=== PATIENT | female | born 1985 | race Caucasian/White ===

== ENCOUNTER 2017-07-07 12:14 | Emergency (ER) | payer OTHER ==
[~2017-07-07] VITALS: Ht 160 cm; Wt 81.7 kg
[2017-07-07 13:02] LABS: ABSOLUTE NEUTROPHILS 8.7 thou/uL (1.4-8.2); BASOPHILS 0.2 % (0.0-2.0); EOSINOPHILS 0.3 % (0.0-3.0); HEMOGLOBIN 16.6 gm/dL (12.0-15.0); LYMPHOCYTES 13.8 % (24.0-44.0); MCH 30.5 pg (26.0-34.0); MCHC 33.9 g/dL (28.0-37.0); MCV 90.1 fL (80.0-100.0); MONOCYTES 4.8 % (1.0-8.0); PLATELET COUNT 258 thou/uL (150-400); POLYS 80.9 % (36.0-66.0); RBC 5.43 mil/uL (4.20-5.00); RDW 12.7 % (10.5-14.5); WBC 10.7 thou/uL (4.0-11.0)
[2017-07-07 13:41] LABS: CALCIUM 9.5 mg/dL (8.5-10.1); CREATININE 0.9 mg/dL (0.6-1.0); POTASSIUM 3.8 mmol/L (3.5-5.1)
[2017-07-07 13:47] LABS: ALBUMIN 3.9 g/dL (3.4-5.0); DIRECT BILIRUBIN 0.1 mg/dL (<0.1-0.3); TOTAL BILIRUBIN 0.5 mg/dL (<0.1-1.0); TOTAL PROTEIN 7.4 g/dL (6.4-8.2)
[2017-07-07 14:47] LABS: URINE BILIRUBIN NEGATIVE (Negative); URINE BLOOD NEGATIVE (Negative); URINE CLARITY CLEAR; URINE COLOR YELLOW; URINE GLUCOSE-RANDOM* NEGATIVE (Negative); URINE KETONES 1+ (Negative); URINE LEUKOCYTES-REFLEX NEGATIVE (Negative); URINE NITRITE-REFLEX NEGATIVE (Negative); URINE PROTEIN (DIPSTICK) TRACE (Negative); URINE SPECIFIC GRAVITY 1.015 (1.005-1.035); URINE UROBILINOGEN 0.2 E.U./dl (0.2-1.0)
[2017-07-07] MEDS ORDERED: NORCO 5-325 TA1 EACH PO (15:06)
[2017-07-07] MEDS ORDERED: ZOFRAN ODT4 MG PO (15:06)
== END 2017-07-07 15:15 | disposition home or self-care (01) ==
LOC: ER 12:14
PROVIDERS: Emergency Medicine
DX: R10.9 Unspecified abdominal pain (principal); R11.2 Nausea with vomiting, unspecified

== ENCOUNTER 2017-10-23 16:08 | Emergency (ER) | payer OTHER ==
[~2017-10-23] VITALS: Ht 162.6 cm; Wt 77.1 kg
[~2017-10-23 16:08] MED LIST: NORCO 5-325 TA1 EACH PO; ZOFRAN ODT4 MG PO
[2017-10-23 16:36] LABS: HEMATOCRIT 52.2 % (37.0-47.0); HEMOGLOBIN 18.8 gm/dL (12.0-15.0); MCH 30.6 pg (26.0-34.0); MCHC 35.9 g/dL (28.0-37.0); MCV 85.2 fL (80.0-100.0); PLATELET COUNT 380 thou/uL (150-400); RBC 6.13 mil/uL (4.20-5.00); RDW 16.6 % (10.5-14.5); WBC 14.8 thou/uL (4.0-11.0)
[2017-10-23 16:49] LABS: ABSOLUTE NEUTROPHILS 12.9 thou/uL (1.4-8.2); ANISOCYTOSIS 1+; MICROCYTES 2+; PLATELET ESTIMATE NORMAL
[2017-10-23 17:08] LABS: URINE BILIRUBIN NEGATIVE (Negative); URINE BLOOD NEGATIVE (Negative); URINE CLARITY CLEAR; URINE COLOR YELLOW; URINE GLUCOSE-RANDOM* NEGATIVE (Negative); URINE KETONES TRACE (Negative); URINE LEUKOCYTES-REFLEX NEGATIVE (Negative); URINE NITRITE-REFLEX NEGATIVE (Negative); URINE PROTEIN (DIPSTICK) 1+ (Negative); URINE SPECIFIC GRAVITY 1.015 (1.005-1.035); URINE UROBILINOGEN 0.2 E.U./dl (0.2-1.0)
[2017-10-23 17:16] LABS: BACTERIA-REFLEX 1-9 Few /HPF (None Seen); CASTS None Seen /LPF (None Seen); CRYSTALS None Seen /LPF (None Seen); MUCUS >6 Heavy strn/LPF (None Seen); SQUAMOUS >10 Many /LPF (0-3); URINE RBC 0-2 Rare /HPF (0-2); URINE WBC-REFLEX 0-5 Rare /HPF (0-5)
[2017-10-23 17:31] LABS: POTASSIUM 4.5 mmol/L (3.5-5.1)
[2017-10-23 17:39] LABS: ALBUMIN 4.5 g/dL (3.4-5.0); TOTAL PROTEIN 8.6 g/dL (6.4-8.2)
[2017-10-23] MEDS ORDERED: ZOFRAN ODT4 MG PO (18:39)
[2017-10-23 19:06] VITALS: BP 116/68
== END 2017-10-23 19:07 | disposition home or self-care (01) ==
LOC: ER 16:08
PROVIDERS: Physician Assistant
DX: R10.13 Epigastric pain (principal); R11.2 Nausea with vomiting, unspecified; R19.7 Diarrhea, unspecified; F12.10 Cannabis abuse, uncomplicated; F17.210 Nicotine dependence, cigarettes, uncomplicated; Z88.0 Allergy status to penicillin

== ENCOUNTER 2017-12-29 15:22 | Emergency (ER) | payer OTHER ==
[~2017-12-29] VITALS: Ht 160 cm; Wt 79.4 kg
[2017-12-29 15:57] LABS: URINE BLOOD NEGATIVE (Negative); URINE CLARITY CLEAR; URINE COLOR YELLOW; URINE GLUCOSE-RANDOM* NEGATIVE (Negative); URINE KETONES TRACE (Negative); URINE LEUKOCYTES-REFLEX NEGATIVE (Negative); URINE NITRITE-REFLEX NEGATIVE (Negative); URINE PROTEIN (DIPSTICK) TRACE (Negative); URINE SPECIFIC GRAVITY >= 1.030 (1.005-1.035); URINE UROBILINOGEN 0.2 E.U./dl (0.2-1.0)
[2017-12-29 15:59] LABS: ICTOTEST (BILI CONFIRMATORY) Negative (Negative); URINE BILIRUBIN NEGATIVE (Negative)
[2017-12-29 16:16] LABS: ABSOLUTE NEUTROPHILS 12.4 thou/uL (1.4-8.2); BASOPHILS 0.4 % (0.0-2.0); EOSINOPHILS 0.1 % (0.0-3.0); HEMATOCRIT 44.4 % (37.0-47.0); HEMOGLOBIN 15.5 gm/dL (12.0-15.0); LYMPHOCYTES 9.5 % (24.0-44.0); MCH 31.2 pg (26.0-34.0); MCHC 34.8 g/dL (28.0-37.0); MCV 89.5 fL (80.0-100.0); MONOCYTES 7.7 % (1.0-8.0); PLATELET COUNT 287 thou/uL (150-400); POLYS 82.3 % (36.0-66.0); RBC 4.96 mil/uL (4.20-5.00); RDW 13.5 % (10.5-14.5)
[2017-12-29 16:26] LABS: CALCIUM 9.2 mg/dL (8.5-10.1); CREATININE 0.9 mg/dL (0.6-1.0); POTASSIUM 3.7 mmol/L (3.5-5.1)
[2017-12-29 16:32] LABS: ALBUMIN 3.9 g/dL (3.4-5.0); TOTAL BILIRUBIN 0.9 mg/dL (<0.1-1.0); TOTAL PROTEIN 7.8 g/dL (6.4-8.2)
[2017-12-29] MEDS ORDERED: NORCO 5-325 TA1 EACH PO (17:24)
[2017-12-29] MEDS ORDERED: ONDANSETRON HCL4 M2 PO (17:24)
[2017-12-29] MEDS ORDERED: MOBIC7.5 MG PO (17:24)
[2017-12-29] MEDS ORDERED: PROTONIX40 M1 PO (17:32)
[2017-12-29] MEDS ORDERED: REGLAN 10 MG TA10 MG PO (17:32)
[2017-12-29 18:19] VITALS: BP 128/86
[2017-12-30] MEDS ORDERED: XANAX1 MG PO (02:39)
[2017-12-30] MEDS ORDERED: PHENERGAN 25 MG25 M1 PO (03:13)
[2017-12-30] MEDS ORDERED: ZOFRAN ODT4 MG PO (03:13)
== END 2017-12-29 18:23 | disposition home or self-care (01) ==
LOC: ER 15:22
PROVIDERS: Physician Assistant
DX: M54.9 Dorsalgia, unspecified (principal); R11.2 Nausea with vomiting, unspecified; F17.210 Nicotine dependence, cigarettes, uncomplicated; Z88.0 Allergy status to penicillin; Z90.49 Acquired absence of other specified parts of digestive tract

== ENCOUNTER 2017-12-30 01:47 | Emergency (ER) | payer OTHER ==
[~2017-12-30] VITALS: Ht 162.6 cm; Wt 81.7 kg
[~2017-12-30 01:47] MED LIST changes: +MOBIC7.5 MG PO; +ONDANSETRON HCL4 M2 PO; +PROTONIX40 M1 PO; +REGLAN 10 MG TA10 MG PO
[2017-12-30] MEDS ORDERED: XANAX1 MG PO (02:39)
[2017-12-30 02:42] LABS: ABSOLUTE NEUTROPHILS 10.1 thou/uL (1.4-8.2); BASOPHILS 0.4 % (0.0-2.0); EOSINOPHILS 0.4 % (0.0-3.0); HEMATOCRIT 47.6 % (37.0-47.0); HEMOGLOBIN 16.8 gm/dL (12.0-15.0); LYMPHOCYTES 15.9 % (24.0-44.0); MCH 31.9 pg (26.0-34.0); MCHC 35.3 g/dL (28.0-37.0); MCV 90.6 fL (80.0-100.0); MONOCYTES 9.4 % (1.0-8.0); PLATELET COUNT 272 thou/uL (150-400); POLYS 73.9 % (36.0-66.0); RBC 5.25 mil/uL (4.20-5.00); RDW 13.8 % (10.5-14.5); WBC 13.7 thou/uL (4.0-11.0)
[2017-12-30 02:54] LABS: CALCIUM 9.5 mg/dL (8.5-10.1); CREATININE 0.9 mg/dL (0.6-1.0)
[2017-12-30 02:58] LABS: ALBUMIN 4.1 g/dL (3.4-5.0); DIRECT BILIRUBIN 0.2 mg/dL (<0.1-0.3); TOTAL BILIRUBIN 1.2 mg/dL (<0.1-1.0); TOTAL PROTEIN 8.3 g/dL (6.4-8.2)
[2017-12-30] MEDS ORDERED: PHENERGAN 25 MG25 M1 PO (03:13)
[2017-12-30] MEDS ORDERED: ZOFRAN ODT4 MG PO (03:13)
[2017-12-30 04:39] VITALS: BP 134/85
== END 2017-12-30 04:41 | disposition home or self-care (01) ==
LOC: ER 01:47
PROVIDERS: Emergency Medicine
DX: F12.188 Cannabis abuse with other cannabis-induced disorder (principal); F17.210 Nicotine dependence, cigarettes, uncomplicated; Z88.0 Allergy status to penicillin; Z90.49 Acquired absence of other specified parts of digestive tract

== ENCOUNTER 2018-04-13 17:36 | Emergency (ER) | payer OTHER ==
[~2018-04-13] VITALS: Ht 162.6 cm; Wt 81.7 kg
[~2018-04-13 17:36] MED LIST changes: +PHENERGAN 25 MG25 M1 PO; +XANAX1 MG PO
[2018-04-13 18:01] LABS: ABSOLUTE NEUTROPHILS 10.1 thou/uL (1.4-8.2); BASOPHILS 0.3 % (0.0-2.0); EOSINOPHILS 0.1 % (0.0-3.0); HEMATOCRIT 49.9 % (37.0-47.0); HEMOGLOBIN 17.5 gm/dL (12.0-15.0); MCH 31.8 pg (26.0-34.0); MCHC 35.1 g/dL (28.0-37.0); MCV 90.5 fL (80.0-100.0); MONOCYTES 2.6 % (1.0-8.0); PLATELET COUNT 312 thou/uL (150-400); RBC 5.51 mil/uL (4.20-5.00); RDW 12.8 % (10.5-14.5); WBC 11.4 thou/uL (4.0-11.0)
[2018-04-13 18:10] LABS: CALCIUM 10.1 mg/dL (8.5-10.1); CREATININE 0.8 mg/dL (0.6-1.0); POTASSIUM 4.1 mmol/L (3.5-5.1)
[2018-04-13 18:15] LABS: ALBUMIN 4.3 g/dL (3.4-5.0); DIRECT BILIRUBIN 0.1 mg/dL (<0.1-0.3); TOTAL BILIRUBIN 0.8 mg/dL (<0.1-1.0); TOTAL PROTEIN 8.3 g/dL (6.4-8.2)
[2018-04-13 18:31] LABS: URINE BILIRUBIN NEGATIVE (Negative); URINE BLOOD NEGATIVE (Negative); URINE CLARITY CLEAR; URINE COLOR YELLOW; URINE GLUCOSE-RANDOM* NEGATIVE (Negative); URINE KETONES NEGATIVE (Negative); URINE LEUKOCYTES NEGATIVE (Negative); URINE NITRITE NEGATIVE (Negative); URINE PROTEIN (DIPSTICK) TRACE (Negative); URINE SPECIFIC GRAVITY 1.015 (1.005-1.035); URINE UROBILINOGEN 0.2 E.U./dl (0.2-1.0)
[2018-04-13 18:41] LABS: AMP/METHAMP Negative (Negative); BARBITURATES Negative (Negative); BENZODIAZEPINES POSITIVE (Negative); COCAINE Negative (Negative); METHADONE Negative (Negative); OPIATES POSITIVE (Negative); PCP Negative (Negative)
[2018-04-13] MEDS ORDERED: ONDANSETRON HCL4 M2 PO (20:51)
[2018-04-13] MEDS ORDERED: TRAMADOL 50 MG50 MG PO (20:57)
== END 2018-04-13 21:19 | disposition home or self-care (01) ==
LOC: ER 17:36
PROVIDERS: Emergency Medicine; Nurse Practitioner Family
DX: R11.2 Nausea with vomiting, unspecified (principal); R42 Dizziness and giddiness; R10.11 Right upper quadrant pain; R10.13 Epigastric pain; F17.210 Nicotine dependence, cigarettes, uncomplicated; K21.9 Gastro-esophageal reflux disease without esophagitis; Z88.0 Allergy status to penicillin; Z90.49 Acquired absence of other specified parts of digestive tract

== ENCOUNTER 2020-04-27 18:05 | Emergency (ER) | payer OTHER ==
[~2020-04-27] VITALS: Ht 162.6 cm; Wt 83.9 kg
[~2020-04-27 18:05] MED LIST changes: +TRAMADOL 50 MG50 MG PO
[2020-04-27 18:44] LABS: HEMOGLOBIN 14.9 gm/dL (12.0-15.0)
[2020-04-27 18:46] LABS: ABSOLUTE NEUTROPHILS 9.2 thou/uL (1.4-8.2); BASOPHILS 0.4 % (0.0-2.0); EOSINOPHILS 0.2 % (0.0-3.0); HEMATOCRIT 44.6 % (37.0-47.0); LYMPHOCYTES 12.3 % (24.0-44.0); MCHC 33.3 g/dL (28.0-37.0); MCV 93.1 fL (80.0-100.0); MONOCYTES 4.5 % (1.0-8.0); PLATELET COUNT 313 thou/uL (150-400); POLYS 82.6 % (36.0-66.0); RBC 4.79 mil/uL (4.20-5.00); RDW 12.8 % (10.5-14.5); WBC 11.1 thou/uL (4.0-11.0)
[2020-04-27 18:51] LABS: CALCIUM 9.7 mg/dL (8.5-10.1); CREATININE 0.9 mg/dL (0.6-1.0); POTASSIUM 3.8 mmol/L (3.5-5.1)
[2020-04-27 18:57] LABS: ALBUMIN 4.4 g/dL (3.4-5.0); TOTAL BILIRUBIN 0.8 mg/dL (0.2-1.0); TOTAL PROTEIN 7.7 g/dL (6.4-8.2)
[2020-04-27 20:30] VITALS: BP 117/71
== END 2020-04-27 20:34 | disposition home or self-care (01) ==
LOC: ER 18:05
PROVIDERS: Emergency Medicine
DX: R11.2 Nausea with vomiting, unspecified (principal); R12 Heartburn; R05 Cough; F17.210 Nicotine dependence, cigarettes, uncomplicated; Z90.49 Acquired absence of other specified parts of digestive tract; Z79.899 Other long term (current) drug therapy; Z88.0 Allergy status to penicillin